=== PATIENT | male | born 1995 ===

== ENCOUNTER 2018-07-30 00:11 | Emergency (ER) | payer BC ==
[2018-07-30] MEDS ORDERED: LORazepam 2 MG/ML INJ IM ONE (00:15)
[2018-07-30 00:56] LABS: PLATELET COUNT 347 10^3/uL (150-400)
--- NOTE | 2018-07-30 02:31 | EDPHY ---
H & P Stated Complaint: ETOH, M1 - Personal History Current Tetanus/Diphtheria Vaccine: Yes Current Tetanus Diphtheria and Acellular Pertussis (TDAP): Yes - Medical/Surgical History Hx Asthma: No Hx Chronic Respiratory Disease: No Hx Diabetes: No Hx Cardiac Disease: No Hx Renal Disease: No Hx Cirrhosis: No Hx Alcoholism: No Hx HIV/AIDS: No Hx Splenectomy or Spleen Trauma: No Other PMH: denies - Social History Smoking Status: Never smoked Time Seen by Provider: 07/30/18 00:17 HPI/ROS: Chief complaint: Alcohol intoxication, mental health hold. History present illness: This is a 22-year-old male brought to the emergency department by EMS, accompanied by police for evaluation of alcohol intoxication. Apparently patient was at a green party where he became overly intoxicated. His friends took him home. Upon getting home he ran from the house , back to the green party where he became somewhat belligerent. During this time while jumping over a fence he fell and struck his head against the ground. On my evaluation patient is agitated and tearful. Stating he is a "fussy" and wants to . The police have placed him a mental health hold. Review of systems: Unable to obtain given level of intoxication (Jefferson Mcdaniel) - Physical Exam Exam: General Appearance: Agitated Eyes: PERRLA Respiratory: Lungs clear to auscultation bilaterally Cardiac: Regular rate and rhythm. Gastrointestinal: Bowel sounds normal. Abdomen soft, nondistended, nontender. Neurological: Alert. Purposefully moving extremities. Skin: Abrasions to the face otherwise no lesions consistent with trauma Musculoskeletal: The head is without apparent tenderness, no crepitus or bony deformity noted. The spine is without apparent tenderness. No crepitus, bony deformity or step-off appreciated. Chest wall intact palpation without crepitus or subcutaneous air. Moving extremities purposefully. Psych: Agitated and tearful (Jefferson Mcdaniel) Constitutional: Initial Vital Signs Temperature (C) 36.7 C 07/30/18 00:43 Heart Rate 75 07/30/18 00:43 Respiratory Rate 16 07/30/18 00:43 Blood Pressure 116/67 07/30/18 00:43 O2 Sat (%) 96 07/30/18 00:43 O2 Delivery Mode Room Air Allergies/Adverse Reactions: No Known Allergies Allergy (Unverified 07/30/18 00:43) Home Medications: Medication Instructions Recorded NK [No Known Home Meds] 07/30/18 Medical Decision Making - Diagnostics Imaging: Discussed imaging studies w/ at home independent call center agent Radiologist ED Course/Re-evaluation: Patient seen under the supervision of my secondary supervising physician Dr. Hector Arriaza. Patient presents to the emergency department intoxicated and on a mental health hold. Abrasions of the face consistent with trauma. Patient was given 1 mg of Ativan IM to help with his agitation. CT scan of the head and neck were obtained given trauma to this region and negative. Lab studies obtained, he is intoxicated otherwise unremarkable. He will need to sober up overnight and then he can be evaluated by Psychiatric Services in the morning. Care of patient is turned over to my attending physician Dr. Hector Arriaza at end of shift. (Jefferson Mcdaniel) Patient has been seen and evaluated by mental health. He contracts for safety denies suicidal homicidal ideation. He arrived to the emergency room intoxicated with alcohol. Drug screen noted positive for cocaine. Patient met with mental health and contracts for safety denies wanting to hurt himself or anybody else. He is eager for discharge. States he drank too much alcohol last night. (Hector Arriaza) Differential Diagnosis: Included but not limited to alcohol intoxication, polysubstance abuse, underlying psychiatric disorder, multi trauma (Jefferson Mcdaniel) - Data Points Laboratory Results: Laboratory Results 07/30/18 00:25 07/30/18 00:25 07/30/18 07/30/18 07/30/18 05:55 00:25 00:25 WBC 8.22 10^3/uL 10^3/uL (3.80-9.50) RBC 5.46 10^6/uL 10^6/uL (4.40-6.38) Hgb 16.8 g/dL g/dL (13.7-17.5) Hct 47.1 % % (40.0-51.0) MCV 86.3 fL fL (81.5-99.8) MCH 30.8 pg pg (27.9-34.1) MCHC 35.7 g/dL g/dL (32.4-36.7) RDW 11.8 % % (11.5-15.2) Plt Count 347 10^3/uL 10^3/uL (150-400) MPV 8.6 fL L fL (8.7-11.7) Neut % (Auto) 47.8 % % (39.3-74.2) Lymph % (Auto) 40.8 % % (15.0-45.0) [place] % (Auto) 9.6 % % (4.5-13.0) Eos % (Auto) 0.4 % L % (0.6-7.6) Baso % (Auto) 0.5 % % (0.3-1.7) Nucleat RBC Rel Count 0.0 % % (0.0-0.2) Absolute Neuts (auto) 3.94 10^3/uL 10^3/uL (1.70-6.50) Absolute Lymphs (auto) 3.35 10^3/uL H 10^3/uL (1.00-3.00) Absolute Monos (auto) 0.79 10^3/uL 10^3/uL (0.30-0.80) Absolute Eos (auto) 0.03 10^3/uL 10^3/uL (0.03-0.40) Absolute Basos (auto) 0.04 10^3/uL 10^3/uL (0.02-0.10) Absolute Nucleated RBC 0.00 10^3/uL 10^3/uL (0-0.01) Immature Gran % 0.9 % % (0.0-1.1) Immature Gran # 0.07 10^3/uL 10^3/uL (0.00-0.10) Sodium 140 mEq/L mEq/L (135-145) Potassium 3.4 mEq/L L mEq/L (3.5-5.2) Chloride 101 mEq/L mEq/L (97-110) Carbon Dioxide 19 mEq/l L mEq/l (22-31) Anion Gap 20 mEq/L H mEq/L (6-14) BUN 11 mg/dL mg/dL (7-23) Creatinine 1.1 mg/dL mg/dL (0.7-1.3) Estimated GFR > 60 Glucose 96 mg/dL mg/dL (70-100) Calcium 9.3 mg/dL mg/dL (8.5-10.4) Urine Opiates Screen NEGATIVE (NEGATIVE) Urine Barbiturates NEGATIVE (NEGATIVE) Ur Phencyclidine Scrn NEGATIVE (NEGATIVE) Ur Amphetamine Screen NON-NEGATIVE H (NEGATIVE) U Benzodiazepines Scrn NEGATIVE (NEGATIVE) Urine Cocaine Screen NON-NEGATIVE H (NEGATIVE) U Marijuana (THC) Screen NEGATIVE (NEGATIVE) Ethyl Alcohol 289 mg/dL H mg/dL (0-10) Medications Given: Discontinued Medications Lorazepam (Ativan Injection) 1 mg IM EDNOW ONE Stop: 07/30/18 00:16 Last Admin: 07/30/18 00:15 Dose: 1 mg Departure - Departure Disposition: Home, Routine, Self-Care Clinical Impression: Alcohol intoxication, Facial abrasion, Cocaine abuse Condition: Fair Instructions: Alcohol Intoxication (ED), Abrasion (ED), Cocaine Abuse (ED) Referrals: NONE *PRIMARY CARE P,. [Primary Care Provider] - As per Instructions
[2018-07-30] MEDS ORDERED: LORazepam 2 MG/ML INJ ONE (02:36)
[2018-07-30 06:38] VITALS: BP 111/76
--- NOTE | 2018-07-30 07:45 | ASMTTLCEVL ---
[facility] Evaluation - Basic Information Evaluation Start Date and 07/30/2018 06:45 AM Time Hospital Status Answers: M1 Hold 72-hr M1 Hold Start Date 07/30/2018 12:10 AM and Time Patient statement Notes: " "I'm not suicidal; I can proise you that". Narrative Notes: Pt is a 22 y/o, [employer] student, intoxicated, brought in by the police on an M1 hold for being a danger to himself. Per M1, "Respondent intoxicated from alcohol. [employer] president,..stated Rickey was running around yelling he wanted to kill himself. Rickey fell over a fence and cut his face. Rickey was combative and resistant to police officers". Labs were positive for amphetamine ( pt is prescribed Adderall) and cocaine. His BAL was 289. [facility] clinician met with pt when his BAL was .06. Pt had reportedly been pleasant and cooperative with all of the staff. Pt's mood shifted with this clinician; he often avoided eye-contact, responses to questions were brief and zara, he made demands and he pulled out his IV after being told not to. He adamantly denied any cocaine use. Although his face was injured and his mood irritable he relayed that he physically and emotionally felt, "good, never better".Pt denied any past or current anxiety or depression or counseling. He denied any SI past or current. He denied that he had said he wanted to kill himself/wanted to and denied the possibility that he doesn't recall this due to 'blacking out' from alcohol. Clinician did speak with his sister, Dana and his 2 friends, Alberto and Davis. 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 They had never observed him as being anxious or depressed and had never heard him make suicidal statements. They all described him as very active in all aspects of college life, studying hard and involved in multiple fraternity events. They also described him as "holding himself to a high standard" and being "hard on himself". They expected that today he would be upset with himself and remorseful. His sister relayed that he "does not believe in mental health, for himself". They believed that his level of intoxication may be due to his not sleeping the night before (studying), not eating lunch that day and possibly being upset that a girl he used to date was at the alliance party. Pt denied that he was ever upset at the alliance party re this girl. It should also be noted that pt's 23st birthday is in 2 days and he appears to planning for a weekend of drinking. Upon being cautioned as to his alcohol consumption moving forward, he states, "I'm turning 23, I'm going to drink" Pt did not present as suicidal, however, given his observed high self-expectations and high degree of intoxication last night it is possible he's experiencing stress that is beyond what he can normally manage. If he is discharged home he will be offered resources for out-pt counseling; will be notified of his mental health hold whether he is discharged or admitted. Diagnosis History Notes: ADHD Prior suicide attempts Notes: Pt denies any past or current SI/SA Prior hospitalizations Notes: Pt denies ever being psychiatrically hospitalized. Treatment Responses Notes: Pt denies ever being in treatment. History of violence Notes: Pt denies any hx of being physicially aggressive towards others. Therapist: None Psychiatrist: None Medications (name, dosage, route, freq uency) Notes: Adderall Allergies/Reaction Notes: No known allergies. Sleep Notes: Pt's sister and friends/roomate state he sleeps very little, "maybe a couple hours a night". Appetite Notes: Pt'ssister and friends/ roomate state he doesn't eat much, however the pt appears well nourished. Medical/Surgical history Notes: No known medical conditions. Substance use history (frequency, intensity, his tory, duration) Notes: Alcohol - 1-3 beers a week. Pt denies all other substance use though his labs were positive for cocaine. Family composition Notes: Pt's parents remain and live in [place]. His sister, Dana, is 18 and a freshman at . Need for family Answers: Yes participation in patient's care Family psychiatric/substance abuse history Notes: Pt's sister denies any family hx of psychiatric issues or substance abuse. Developmental history Notes: Hx significant for ADHD. Trauma/abuse is denied. Abuse concerns Answers: None Marital status/children Notes: Pt is single and has no children. Living situation Notes: Pt lives in an off campus house with 11 other people. Sexual history/orientation Notes: Heterosexual. Peer support/family strengths Notes: Pt states that he is close with his family. He seems to have a large [place] of friends. Education level/history Notes: Pt is a srinath at , majoring in economics. He reports mostly A's with 1 B. Work history Notes: Pt works as a rafting guide in the summer. Notes: Pt denies. Legal Notes: Pt denies. Uatsdin/Spiritual Notes: Unknown. Leisure Notes: Pt enjoys snowboarding, [employer] and video games. Collateral Notes: Sister - Dana Friends - Alberto and Davis Patient's strengths Answers: Athletic (Please select at least TWO strengths): Intelligent TLC Evaluation - Mental Status Exam Appearance: Answers: Unkempt Disheveled Eye Contact: Answers: Intermittent Mood: Answers: Irritable Affect: Answers: Constricted Guarded Irritable Behavior: Answers: Uncooperative Belligerent Guarded Speech: Answers: Relevant Logical Clear Coherent Thought Process: Answers: Organized Oriented Alert Goal Oriented Intact Insight: Answers: Poor Judgement: Answers: Poor Hallucinations: Answers: None Current Stage of Change Answers: Precontemplation Pt reported to have Answers: Yes suicidal/self-injuring ideation/behavior? Pt reported to be making Answers: Yes suicidal/self-injuring threats? Pt reported to have Answers: No aggression/assault ideation/behavior? Pt reported to be making Answers: No aggression/assault threats? Pt exhibits inability to Answers: No care for self/grave disability? Ideation/behavior is Answers: No chronic? Patient has a specific Answers: No plan? Pt has access to means to Answers: No execute the plan? Ideation involves Answers: No serious/lethal intent? Ideation has Answers: No delusional/hallucinatory content? History of Answers: No suicidal/self-injuring ideation, behavior, or threats? History of Answers: No aggressive/assaultive ideation, behavior, or threats? History of serious Answers: No physical harm to self/others while in treatment setting? TLC Evaluation - Suicide/Homicide Risk Suicide Risk Factors: Answers: Agitation Alcohol/Heavy Drug Use Global Insomnia Homicide/violence risk Answers: Heavy Alcohol Use factors: Current Suicide Ideation Pt denies any. Frequency: Current Suicidal Ideation Answers: Yes in the Past 48 Hours? Current Suicidal Ideation Answers: No in the Past Month? Current Suicidal Answers: Yes Ideation, Worst Ever? Suicide Internal Answers: Absence of Psychosis Protective Factors: Suicide External Answers: Social Support Protective Factors: Ranking of patient's Answers: Low suicidal risk: Ranking of patient's Answers: Low homicidal risk: TLC Evaluation - Wrap-up BDI Total Score: Not completed BSS Total Score: Not completed AXIS I Diagnosis (include DSM-V and ICD-10 codes), must also be entered in [employer], which is the source of truth. 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 M1 hold lifted by Dr Marcus at 06:34. Evaluation End Date and 07/30/2018 07:40 AM Time (HH:KRISTIN): Date Signed: 07/30/2018 07:44 AM Electronically Signed By:Blanca Miranda
--- NOTE | 2018-07-30 07:47 | ASMTTCLDSP ---
TLC Discharge Disposition Disposition: Answers: Discharge If Answers: Yes DISCHARGED: Patient/family given suicide hotline info & SAMHSA brochure? Disposition Notes: Notes: Pt offered resources for both psychiatric and mental health counseling; he declined. Марина BRIGHT, contacted and message left re pt's M1 hold and d/c disposition. Discharge Concerns/Recommendations: Notes: In consultation with [facility] ED physician, Dr Marcus and on-call psychiatrist, concurred that Pt does not appear to meet 27-65 criteria requiring psychiatric hospitalization as Pt does not appear to be an imminent risk of harm to self due to a mental illness condition. M1 hold lifted by Dr Marcus at 06:34. Psychiatrist vacating M1 Dr Marcus, ED physician Hold: Date and time M1 hold 07/30/2018 06:34 AM vacated (time format is hh:mm): Type of Hold: Answers: M1/72-hour Hold Hold initiated by: Answers: Police Date Signed: 07/30/2018 07:47 AM Electronically Signed By:Blanca Miranda
== END 2018-07-30 06:37 | disposition home or self-care (01) ==
LOC: EDUNIT#
PROC: GZ11ZZZ Psychological Tests, Personality and Behavioral (ICD-10-PCS; principal; 2018-07-30)
DX: F10.920 Alcohol use, unspecified with intoxication, uncomplicated (principal); S00.81XA Abrasion of other part of head, initial encounter; F14.10 Cocaine abuse, uncomplicated; W01.198A Fall on same level from slipping, tripping and stumbling with subsequent striking against other object, initial encounter; Y93.39 Activity, other involving climbing, rappelling and jumping off; Y92.89 Other specified places as the place of occurrence of the external cause; Y99.9 Unspecified external cause status
CPT/HCPCS: 80305; G0480; J2060